=== PATIENT | female | born 1965 ===

== ENCOUNTER 2020-04-21 10:08 | Outpatient (REF) | payer OTHER, SELFPAY ==
--- NOTE | 2020-04-21 11:35 | XR_ITS ---
EXAMINATION: XR HIP, LEFT XR HAND AND WRIST, RIGHT XR WRIST, LEFT CLINICAL INFORMATION: Rheumatoid arthritis. COMPARISON: None TECHNIQUE: Left hip 2 views. Left hand and wrist 4 views. Right hand and wrist 3 views. FINDINGS: LEFT HIP: There is no visible fracture, dislocation or bony erosive changes. There is a sclerotic bone island in the left ischium. The soft tissues are normal. RIGHT HAND/WRIST: There is no visible acute fracture, dislocation or subluxation seen. No bony erosive changes. The scaphoid bone is intact on the scaphoid view. The soft tissues are normal. LEFT HAND/WRIST: There is no visible acute fracture, dislocation or subluxation seen. No bony erosive changes. The scaphoid bone appears intact on the scaphoid view. The soft tissues are normal. XR/XR hand wrist RT IMPRESSION: Unremarkable left hip exam. Unremarkable right hand and wrist exam. Unremarkable left hand and wrist exam.
--- NOTE | 2020-04-21 11:35 | XR_ITS ---
EXAMINATION: XR HIP, LEFT XR HAND AND WRIST, RIGHT XR WRIST, LEFT CLINICAL INFORMATION: Rheumatoid arthritis. COMPARISON: None TECHNIQUE: Left hip 2 views. Left hand and wrist 4 views. Right hand and wrist 3 views. FINDINGS: LEFT HIP: There is no visible fracture, dislocation or bony erosive changes. There is a sclerotic bone island in the left ischium. The soft tissues are normal. RIGHT HAND/WRIST: There is no visible acute fracture, dislocation or subluxation seen. No bony erosive changes. The scaphoid bone is intact on the scaphoid view. The soft tissues are normal. LEFT HAND/WRIST: There is no visible acute fracture, dislocation or subluxation seen. No bony erosive changes. The scaphoid bone appears intact on the scaphoid view. The soft tissues are normal. XR/XR wrist LT 2V IMPRESSION: Unremarkable left hip exam. Unremarkable right hand and wrist exam. Unremarkable left hand and wrist exam.
--- NOTE | 2020-04-21 11:35 | XR_ITS ---
EXAMINATION: XR HIP, LEFT XR HAND AND WRIST, RIGHT XR WRIST, LEFT CLINICAL INFORMATION: Rheumatoid arthritis. COMPARISON: None TECHNIQUE: Left hip 2 views. Left hand and wrist 4 views. Right hand and wrist 3 views. FINDINGS: LEFT HIP: There is no visible fracture, dislocation or bony erosive changes. There is a sclerotic bone island in the left ischium. The soft tissues are normal. RIGHT HAND/WRIST: There is no visible acute fracture, dislocation or subluxation seen. No bony erosive changes. The scaphoid bone is intact on the scaphoid view. The soft tissues are normal. LEFT HAND/WRIST: There is no visible acute fracture, dislocation or subluxation seen. No bony erosive changes. The scaphoid bone appears intact on the scaphoid view. The soft tissues are normal. XR/XR hip LT min 2V IMPRESSION: Unremarkable left hip exam. Unremarkable right hand and wrist exam. Unremarkable left hand and wrist exam.
[2020-04-21 12:19] LABS: MANUAL DIFF FLAG NO
[2020-04-21 12:27] LABS: Basophils Percent Auto 0.3 % (0-2); Eosinophils Absolute Auto 0.2 X10*3/uL (0.0-0.4); Eosinophils Percent Auto 2.2 % (0-4); Hematocrit 39.7 % (37-47); Hemoglobin 12.4 g/dl (12.0-16.0); Imm Gran Abs Auto 0.02 X10*3/uL (0.00-0.03); Imm Gran Pct Auto 0.3 % (0.0-0.4); Lymphocytes Absolute Auto 2.3 X10*3/uL (1.2-4.9); Lymphocytes Percent Auto 29.5 % (20-40); Mean Corpuscular HGB Conc 31.2 g/dl (31.0-35.0); Mean Corpuscular Hemoglobin 25.5 pg (27.0-33.0); Mean Corpuscular Volume 81.5 fL (80-98); Mean Platelet Volume 9.7 fL (9.4-12.3); Monocytes Absolute Auto 0.6 X10*3/uL (0.1-1.2); Monocytes Percent Auto 7.7 % (2-11); Neutrophils Absolute Auto 4.6 X10*3/uL (2.0-8.3); Platelet Count 290 X10*3/uL (160-400); Red Blood Count 4.87 X10*6/uL (4.20-5.50); Red Cell Distribution Width 14.5 % (11.0-16.0); White Blood Count 7.7 X10*3/uL (4.8-10.8)
[2020-04-21 12:59] LABS: Alanine Aminotransferase 17 U/L (0-31); Albumin Level 4.4 g/dL (3.5-5.0); Alkaline Phosphatase 91 U/L (39-117); Anion Gap 12 (12-20); Aspartate Amino Transferase 18 U/L (5-31); Bilirubin Total 0.4 mg/dL (0.0-1.0); Blood Urea Nitrogen 17 mg/dL (9-16); C Reactive Protein 0.46 mg/dL (< or = 0.50); Calcium 9.2 mg/dL (8.4-10.2); Carbon Dioxide 28 mmol/L (22-29); Chloride 106 mmol/L (96-108); Estimated Glomerular Filt Rate > 60; Glucose Random 92 mg/dL (60-115); Rheumatoid Factor < 15.0 IU/mL (<15.0); Sodium 142 mmol/L (135-145); Total Protein 6.9 g/dL (6.5-8.0)
[2020-04-21 13:17] LABS: Erythrocyte Sedimentation Rate 16 MM/HR (0-20)
[2020-04-22 04:42] LABS: HBS Num1 55.58 mIU/mL (0-7.99); HBc Num1 0.06 S/CO (0.00-0.79); Hepatitis B Core Antibody Nonreactive (Nonreactive); ~HepC Num1 0.04 S/CO (0.00-0.79); ~Hepatitis B Surface Antibody REACTIVE (Nonreactive); ~Hepatitis C Antibody Nonreactive (Nonreactive)
[2020-04-22 04:53] LABS: HBsAGNum1 0.26 S/CO (0.00-0.99); Hepatitis A Antibody IgM 0.22 Index (0-0.79); Hepatitis B Surface Antigen Negative (Negative); ~Hepatitis A Antibody IgM Nonreactive (Nonreactive)
[2020-04-22 13:42] LABS: Anti Nuclear Antibody Screen NEGATIVE (NEGATIVE)
[2020-04-22 14:58] LABS: Antibody to SS-A Antigen <1.0 NEG AI (<1.0 NEG); Antibody to SS-B Antigen <1.0 NEG AI (<1.0 NEG)
[2020-04-22 23:57] LABS: Cyclic Citrullinated Peptide <16 UNITS
[2020-04-23 20:42] LABS: TS Negative Control Passed; TS Panel A 0; TS Panel B 0; TS Positive Control Passed; TSpotTB Negative (SeeBelow)
== END 2020-04-21 10:09 | disposition home or self-care (01) ==
LOC: HO.LAB 10:08
PROVIDERS: PCP Internal Medicine; Referring Provider Internal Medicine; Visit Provider Student in an Organized Health Care Education/Training Program
DX: M06.9 Rheumatoid arthritis, unspecified (principal); Z79.899 Other long term (current) drug therapy
CPT/HCPCS: 36415; 73100; 73110; 73130; 73502; 80053; 85025; 85652; 86038; 86039; 86140; 86200; 86235; 86431; 86481; 86704; 86706; 86709; 86803; 87340; 99202

== ENCOUNTER → 2020-05-17 13:11 | Outpatient (BNVA) | payer OTHER, SELFPAY | PROVIDERS: PCP Internal Medicine; Visit Provider Student in an Organized Health Care Education/Training Program ==

== ENCOUNTER 2020-08-03 15:43 | Outpatient (REF) | payer OTHER, SELFPAY ==
--- NOTE | ~2020-08-03 | XR_ITS ---
EXAMINATION: XR HAND, RIGHT CLINICAL INFORMATION: Rheumatoid arthritis COMPARISON: Previous x-ray most recent April 2020 TECHNIQUE: PA, lateral, and oblique views of the right hand. FINDINGS: Bone alignment is normal. No fracture or dislocation is seen. The bones appear osteopenic. The joint spaces are normal. Soft tissues are normal. XR/XR hand RT min 3V IMPRESSION: Osteopenia otherwise unremarkable exam.
--- NOTE | ~2020-08-03 | XR_ITS ---
EXAMINATION: XR KNEE, RIGHT CLINICAL INFORMATION: Rheumatoid arthritis COMPARISON: None TECHNIQUE: Four views of the right knee. FINDINGS: Bones and soft tissues are normal. No fracture or joint effusion. Alignment is anatomic. Joint spaces are well maintained. No abnormal soft tissue calcification. XR/XR knee RT 3V IMPRESSION: Normal right knee.
[2020-08-03 16:28] LABS: MANUAL DIFF FLAG NO
[2020-08-03 16:37] LABS: Basophils Percent Auto 0.4 % (0-2); Eosinophils Absolute Auto 0.2 X10*3/uL (0.0-0.4); Hematocrit 39.4 % (37-47); Hemoglobin 12.2 g/dl (12.0-16.0); Imm Gran Abs Auto 0.02 X10*3/uL (0.00-0.03); Imm Gran Pct Auto 0.2 % (0.0-0.4); Lymphocytes Absolute Auto 2.7 X10*3/uL (1.2-4.9); Lymphocytes Percent Auto 29.2 % (20-40); Mean Corpuscular Hemoglobin 25.2 pg (27.0-33.0); Mean Corpuscular Volume 81.4 fL (80-98); Mean Platelet Volume 9.3 fL (9.4-12.3); Monocytes Absolute Auto 0.9 X10*3/uL (0.1-1.2); Monocytes Percent Auto 9.8 % (2-11); Neutrophils Absolute Auto 5.4 X10*3/uL (2.0-8.3); Neutrophils Percent Auto 58.4 % (45-73); Platelet Count 280 X10*3/uL (160-400); Red Blood Count 4.84 X10*6/uL (4.20-5.50); White Blood Count 9.2 X10*3/uL (4.8-10.8)
[2020-08-03 17:06] LABS: Alanine Aminotransferase 24 U/L (0-31); Albumin Level 4.4 g/dL (3.5-5.0); Alkaline Phosphatase 86 U/L (39-117); Anion Gap 11 (12-20); Aspartate Amino Transferase 22 U/L (5-31); Bilirubin Total 0.3 mg/dL (0.0-1.0); Blood Urea Nitrogen 15 mg/dL (9-16); C Reactive Protein 0.47 mg/dL (< or = 0.50); Calcium 9.4 mg/dL (8.4-10.2); Carbon Dioxide 29 mmol/L (22-29); Chloride 108 mmol/L (96-108); Estimated Glomerular Filt Rate > 60; Glucose Random 68 mg/dL (60-115); Sodium 144 mmol/L (135-145); Total Protein 6.8 g/dL (6.5-8.0)
[2020-08-03 18:03] LABS: Erythrocyte Sedimentation Rate 16 MM/HR (0-20)
== END 2020-08-03 15:44 | disposition home or self-care (01) ==
LOC: HO.XRAY 15:43
PROVIDERS: PCP Internal Medicine; Visit Provider Student in an Organized Health Care Education/Training Program
DX: M06.9 Rheumatoid arthritis, unspecified (principal); Z79.899 Other long term (current) drug therapy
CPT/HCPCS: 36415; 73130; 73562; 80053; 85025; 85652; 86140; 99212

== ENCOUNTER 2020-11-04 10:32 | Outpatient (REF) | payer OTHER, SELFPAY ==
[2020-11-04 11:49] LABS: MANUAL DIFF FLAG NO
[2020-11-04 11:57] LABS: Basophils Percent Auto 0.4 % (0-2); Eosinophils Absolute Auto 0.2 X10*3/uL (0.0-0.4); Eosinophils Percent Auto 2.2 % (0-4); Hematocrit 40.1 % (37-47); Hemoglobin 12.4 g/dl (12.0-16.0); Imm Gran Abs Auto 0.02 X10*3/uL (0.00-0.03); Imm Gran Pct Auto 0.3 % (0.0-0.4); Lymphocytes Absolute Auto 2.9 X10*3/uL (1.2-4.9); Lymphocytes Percent Auto 37.3 % (20-40); Mean Corpuscular HGB Conc 30.9 g/dl (31.0-35.0); Mean Corpuscular Volume 80.8 fL (80-98); Mean Platelet Volume 8.9 fL (9.4-12.3); Monocytes Absolute Auto 0.7 X10*3/uL (0.1-1.2); Monocytes Percent Auto 8.5 % (2-11); Neutrophils Percent Auto 51.3 % (45-73); Platelet Count 277 X10*3/uL (160-400); Red Blood Count 4.96 X10*6/uL (4.20-5.50); Red Cell Distribution Width 15.4 % (11.0-16.0); White Blood Count 7.8 X10*3/uL (4.8-10.8)
[2020-11-04 12:41] LABS: Alanine Aminotransferase 17 U/L (0-31); Albumin Level 4.5 g/dL (3.5-5.0); Alkaline Phosphatase 86 U/L (39-117); Anion Gap 12 (12-20); Aspartate Amino Transferase 19 U/L (5-31); Bilirubin Total 0.5 mg/dL (0.0-1.0); Blood Urea Nitrogen 10 mg/dL (9-16); C Reactive Protein 0.43 mg/dL (< or = 0.50); Calcium 9.7 mg/dL (8.4-10.2); Carbon Dioxide 27 mmol/L (22-29); Chloride 106 mmol/L (96-108); Estimated Glomerular Filt Rate > 60; Glucose Random 86 mg/dL (60-115); Potassium 4.3 mmol/L (3.3-5.1); Sodium 141 mmol/L (135-145); Total Protein 7.1 g/dL (6.5-8.0)
[2020-11-04 13:24] LABS: Erythrocyte Sedimentation Rate 13 MM/HR (0-20)
== END 2020-11-04 10:33 | disposition home or self-care (01) ==
LOC: HO.LAB 10:32
PROVIDERS: PCP Internal Medicine; Visit Provider Student in an Organized Health Care Education/Training Program
DX: M06.9 Rheumatoid arthritis, unspecified (principal)
CPT/HCPCS: 36415; 80053; 85025; 85652; 86140; 99212

== ENCOUNTER → 2021-02-08 14:05 | Outpatient (BNVA) | payer OTHER, SELFPAY | PROVIDERS: PCP Internal Medicine; Visit Provider Nurse Practitioner Family | DX: M06.9 Rheumatoid arthritis, unspecified (principal) | CPT/HCPCS: 99212 ==

== ENCOUNTER 2021-03-16 09:41 | Outpatient (REF) | payer OTHER, SELFPAY ==
[2021-03-16 09:57] LABS: MANUAL DIFF FLAG NO
[2021-03-16 10:20] LABS: Basophils Percent Auto 0.3 % (0-2); Eosinophils Absolute Auto 0.2 X10*3/uL (0.0-0.4); Eosinophils Percent Auto 2.6 % (0-4); Hematocrit 40.4 % (37.0-47.0); Hemoglobin 12.7 g/dl (12.0-16.0); Imm Gran Abs Auto 0.02 X10*3/uL (0.00-0.03); Imm Gran Pct Auto 0.3 % (0.0-0.4); Lymphocytes Absolute Auto 2.5 X10*3/uL (1.2-4.9); Lymphocytes Percent Auto 34.2 % (20-40); Mean Corpuscular HGB Conc 31.4 g/dl (31.0-35.0); Mean Corpuscular Hemoglobin 25.6 pg (27.0-33.0); Mean Corpuscular Volume 81.5 fL (80.0-98.0); Mean Platelet Volume 8.8 fL (9.4-12.3); Monocytes Absolute Auto 0.5 X10*3/uL (0.1-1.2); Monocytes Percent Auto 7.3 % (2-11); Neutrophils Percent Auto 55.3 % (45-73); Platelet Count 300 X10*3/uL (160-400); Red Blood Count 4.96 X10*6/uL (4.20-5.50); White Blood Count 7.2 X10*3/uL (4.8-10.8)
[2021-03-16 11:05] LABS: Alanine Aminotransferase 18 U/L (0-31); Albumin Level 4.5 g/dL (3.5-5.0); Alkaline Phosphatase 84 U/L (39-117); Anion Gap 14 (12-20); Aspartate Amino Transferase 20 U/L (5-31); Bilirubin Total 0.5 mg/dL (0.0-1.0); Blood Urea Nitrogen 11 mg/dL (9-16); C Reactive Protein 0.42 mg/dL (< or = 0.50); Calcium 9.8 mg/dL (8.4-10.2); Carbon Dioxide 28 mmol/L (22-29); Chloride 103 mmol/L (96-108); Estimated Glomerular Filt Rate > 60; Glucose Random 87 mg/dL (60-115); Potassium 3.9 mmol/L (3.3-5.1); Sodium 141 mmol/L (135-145); Total Protein 7.5 g/dL (6.5-8.0)
[2021-03-16 12:20] LABS: Erythrocyte Sedimentation Rate 28 MM/HR (0-20)
== END 2021-03-16 09:42 | disposition home or self-care (01) ==
LOC: HO.LAB 09:41
PROVIDERS: PCP Internal Medicine; Visit Provider Nurse Practitioner Family
DX: M06.9 Rheumatoid arthritis, unspecified (principal)
CPT/HCPCS: 36415; 80053; 85025; 85652; 86140

== ENCOUNTER 2021-03-16 10:22 | Outpatient (REF) | payer OTHER, SELFPAY ==
--- NOTE | ~2021-03-16 | MM_ITS ---
EXAMINATION: BONE DENSITOMETRY CLINICAL INDICATION: Rheumatoid arthritis, unspecified. COMPARISON: This is the patient's baseline examination. TECHNIQUE: Using a [employer] DXA System (software version: 13.1) manufactured by [employer], dual-energy x-ray absorptiometry was performed of the lumbar spine and left hip. The images are of good technical quality. Summary results are attached. FINDINGS: AP SPINE L2-L4 (excluding L1): The data of L1-L4 has been changed to exclude the L1 vertebral body, because degenerative sclerosis at this level may cause overestimation of lumbar spine density. BMD 1.024 g/cm2, Z-score -1.0, T-score -1.5, osteopenia. LEFT FEMUR, NECK: BMD 0.884 g/cm2, Z-score -0.3, T-score -1.1, osteopenia. LEFT FEMUR, TOTAL: BMD 0.920 g/cm2, Z-score -0.3, T-score -0.7, normal. IDENTIFIED RISK FACTORS: Rheumatoid arthritis, history of fracture (adult), menopause, right oophorectomy. HISTORY OF FRACTURE: Wrist. MEDICATIONS: Vitamin D. MM/XR DEXA axial skeleton IMPRESSION: 1. DIAGNOSIS: Osteopenia based on the lowest T-score value of -1.5 in the lumbar spine applying World Health Organization criteria. 2. 10-YEAR FRACTURE RISK PREDICTION, FRAX: Major osteoporotic fracture (clinical spine, forearm, hip or shoulder) 7.5%. Hip fracture 0.5%. 3. Treatment Recommendations: NOF guidelines recommend consideration for treatment in postmenopausal women and men age 50 and older presenting with the following: -A hip or vertebral (clinical or morphometric) fracture. -T-score less than or equal to -2.5 at the femoral neck or spine after appropriate evaluation to exclude secondary causes. -Low bone mass at the hip or spine and a 10-year fracture probability by FRAX of greater than or equal to 3% for hip fracture or greater than or equal to 20% for major osteoporotic fracture based on the [place] adapted WHO algorithm. 4. Other Recommendations: All treatment decisions require clinical judgment and consideration of individual patient factors, including patient preferences, comorbidities, previous drug use, risk factors not captured in the FRAX model (e.g. frailty, falls, vitamin D deficiency, increased bone turnover, interval significant decline in bone density) and possible under or overestimation of fracture risk by FRAX. Additional medical evaluation for secondary cause of low bone mineral density may be appropriate. FUTURE SCAN RECOMMENDATION: People with diagnosed cases of osteoporosis or at high risk for fracture should have regular bone mineral density tests. For patients eligible for Medicare, routine testing is allowed once every 2 years. The testing frequency can be increased to one year for patients who have rapidly progressing disease, those who are receiving or discontinuing medical therapy to restore bone mass, or have additional risk factors.
== END 2021-03-16 10:23 | disposition home or self-care (01) ==
LOC: HO.MAMMO 10:22
PROVIDERS: Visit Provider Nurse Practitioner Family
DX: M06.9 Rheumatoid arthritis, unspecified (principal); Z78.0 Asymptomatic menopausal state; Z90.721 Acquired absence of ovaries, unilateral
CPT/HCPCS: 77080

== ENCOUNTER → 2021-06-16 10:39 | Outpatient (BNVA) | payer OTHER, SELFPAY | PROVIDERS: PCP Internal Medicine; Visit Provider Nurse Practitioner Family | DX: M06.9 Rheumatoid arthritis, unspecified (principal); Z87.39 Personal history of other diseases of the musculoskeletal system and connective tissue | CPT/HCPCS: 99212 ==

== ENCOUNTER → 2021-09-20 10:23 | Outpatient (BNVA) | payer OTHER, SELFPAY | PROVIDERS: PCP Internal Medicine; Visit Provider Nurse Practitioner Family | DX: M06.09 Rheumatoid arthritis without rheumatoid factor, multiple sites (principal); M85.80 Other specified disorders of bone density and structure, unspecified site; Z79.899 Other long term (current) drug therapy | CPT/HCPCS: 99212 ==

== ENCOUNTER → 2021-12-20 09:33 | Outpatient (BNVA) | payer OTHER, SELFPAY | PROVIDERS: PCP Internal Medicine; Visit Provider Nurse Practitioner Family | DX: M06.9 Rheumatoid arthritis, unspecified (principal); Z87.39 Personal history of other diseases of the musculoskeletal system and connective tissue | CPT/HCPCS: 99212 ==

== ENCOUNTER 2022-03-22 12:02 | Outpatient (REF) | payer OTHER, SELFPAY ==
[2022-03-22 13:40] LABS: MANUAL DIFF FLAG NO
[2022-03-22 13:41] LABS: Basophils Percent Auto 0.5 % (0-2); Eosinophils Absolute Auto 0.1 X10*3/uL (0.0-0.4); Eosinophils Percent Auto 1.7 % (0-4); Hematocrit 40.4 % (37.0-47.0); Hemoglobin 12.4 g/dl (12.0-16.0); Imm Gran Abs Auto 0.01 X10*3/uL (0.00-0.03); Imm Gran Pct Auto 0.2 % (0.0-0.4); Lymphocytes Absolute Auto 2.4 X10*3/uL (1.2-4.9); Lymphocytes Percent Auto 37.5 % (20-40); Mean Corpuscular HGB Conc 30.7 g/dl (31.0-35.0); Mean Corpuscular Hemoglobin 25.1 pg (27.0-33.0); Mean Corpuscular Volume 81.8 fL (80.0-98.0); Mean Platelet Volume 9.4 fL (9.4-12.3); Monocytes Absolute Auto 0.6 X10*3/uL (0.1-1.2); Monocytes Percent Auto 8.5 % (2-11); Neutrophils Absolute Auto 3.4 x10*3/uL (2.0-8.3); Neutrophils Percent Auto 51.6 % (45-73); Platelet Count 281 X10*3/uL (160-400); Red Blood Count 4.94 X10*6/uL (4.20-5.50); Red Cell Distribution Width 14.6 % (11.0-16.0); White Blood Count 6.5 X10*3/uL (4.8-10.8)
[2022-03-22 14:06] LABS: Alanine Aminotransferase 22 U/L (0-31); Aspartate Amino Transferase 20 U/L (5-31); C Reactive Protein 0.21 mg/dL (< or = 0.50); Estimated Glomerular Filt Rate > 60
[2022-03-22 14:30] LABS: Erythrocyte Sedimentation Rate 16 MM/HR (0-20)
== END 2022-03-22 12:03 | disposition home or self-care (01) ==
LOC: HO.10HDL 12:02
PROVIDERS: Visit Provider Nurse Practitioner Family
DX: M06.9 Rheumatoid arthritis, unspecified (principal); Z87.39 Personal history of other diseases of the musculoskeletal system and connective tissue; Z79.899 Other long term (current) drug therapy
CPT/HCPCS: 36415; 82565; 84450; 84460; 85025; 85652; 86140; 99212

== ENCOUNTER → 2022-07-05 11:40 | Outpatient (BNVA) | payer OTHER, SELFPAY | PROVIDERS: PCP Hospitalist; Visit Provider Nurse Practitioner Family | DX: M06.9 Rheumatoid arthritis, unspecified (principal); Z87.39 Personal history of other diseases of the musculoskeletal system and connective tissue | CPT/HCPCS: 99212 ==

== ENCOUNTER 2022-07-05 12:29 | Outpatient (REF) | payer OTHER, SELFPAY ==
[2022-07-05 13:42] LABS: MANUAL DIFF FLAG NO
[2022-07-05 13:55] LABS: Basophils Percent Auto 0.3 % (0-2); Eosinophils Absolute Auto 0.1 X10*3/uL (0.0-0.4); Eosinophils Percent Auto 1.7 % (0-4); Hematocrit 38.9 % (37.0-47.0); Hemoglobin 12.2 g/dl (12.0-16.0); Imm Gran Abs Auto 0.02 X10*3/uL (0.00-0.03); Imm Gran Pct Auto 0.3 % (0.0-0.4); Lymphocytes Absolute Auto 2.2 X10*3/uL (1.2-4.9); Lymphocytes Percent Auto 31.2 % (20-40); Mean Corpuscular HGB Conc 31.4 g/dl (31.0-35.0); Mean Corpuscular Hemoglobin 25.6 pg (27.0-33.0); Mean Corpuscular Volume 81.7 fL (80.0-98.0); Mean Platelet Volume 9.6 fL (9.4-12.3); Monocytes Absolute Auto 0.6 X10*3/uL (0.1-1.2); Neutrophils Absolute Auto 4.1 x10*3/uL (2.0-8.3); Neutrophils Percent Auto 58.5 % (45-73); Platelet Count 272 X10*3/uL (160-400); Red Blood Count 4.76 X10*6/uL (4.20-5.50); Red Cell Distribution Width 14.5 % (11.0-16.0)
[2022-07-05 14:49] LABS: Erythrocyte Sedimentation Rate 13 MM/HR (0-20)
[2022-07-05 15:04] LABS: Alanine Aminotransferase 20 U/L (0-31); Albumin Level 4.4 g/dL (3.5-5.0); Alkaline Phosphatase 79 U/L (39-117); Anion Gap 14 (12-20); Aspartate Amino Transferase 20 U/L (5-31); Bilirubin Total 0.5 mg/dL (0.0-1.0); Blood Urea Nitrogen 13 mg/dL (9-16); C Reactive Protein 0.16 mg/dL (< or = 0.50); Calcium 9.4 mg/dL (8.4-10.2); Carbon Dioxide 25 mmol/L (22-29); Chloride 106 mmol/L (96-108); Estimated Glomerular Filt Rate > 60; Glucose Random 101 mg/dL (60-115); Potassium 3.8 mmol/L (3.3-5.1); Sodium 141 mmol/L (135-145); Total Protein 6.8 g/dL (6.5-8.0)
== END 2022-07-05 12:30 | disposition home or self-care (01) ==
LOC: HO.10HDL 12:29
PROVIDERS: Visit Provider Nurse Practitioner Family
DX: M06.9 Rheumatoid arthritis, unspecified (principal)
CPT/HCPCS: 36415; 80053; 85025; 85652; 86140

== ENCOUNTER 2022-12-04 10:19 | Outpatient (AMB) | payer OTHER, SELFPAY ==
--- NOTE | 2022-12-04 10:24 | MHC.OFFVIS ---
Intake Vital Signs 12/04/22 10:25 Height 5 ft Weight 161 lb 6.054 oz BMI 31.5 BP 104/66 Blood Pressure Location Rt brachial Position Sitting Pulse 73 Pulse Source Pulse Oximeter Temp 97.4 F Temp Source Skin Pulse Oximetry (%) 97 Intake Visit Reasons: rheumatoid arthritis Intake Note: Pt seen today for RA follow up. Speech Language Therapist Required: No Accompanied by: Self / Same As Patient Allergies No Known Allergies Allergy (Verified 12/04/22 10:27) Medication List - Last Reconciled 12/04/22 by Ginny Hancock MD albuterol sulfate 0.63 mg inhalation QID PRN albuterol sulfate 90 mcg/actuation (Ventolin HFA) 2 puffs inhalation Q4H PRN aripiprazole 20 mg PO BEDTIME PRN atorvastatin 20 mg PO DAILY bupropion HCl 150 mg PO QAM cholecalciferol (vitamin D3) 50 mcg PO DAILY clonazepam 1 mg PO BID PRN diphenhydramine HCl (Allergy (diphenhydramine)) 25 mg PO Q6H PRN fluticasone propionate 110 mcg/actuation (Flovent HFA) 1 puff inhalation BID hydrochlorothiazide 12.5 mg PO DAILY hydroxyzine HCl 25 mg PO DAILY ibuprofen 600 mg PO Q8H PRN leflunomide 20 mg PO DAILY lisinopril 20 mg PO DAILY montelukast (Singulair) 10 mg PO DAILY multivitamin 1 tab PO BID naltrexone 50 mg PO DAILY omeprazole 20 mg PO DAILY phentermine 15 mg PO DAILY sulfasalazine 500 mg PO DAILY sumatriptan succinate mg PO topiramate 25 mg PO DAILY triamcinolone acetonide 0.025% topical HPI HPI Comments History of Present Illness Details 57yoF presents for follow-up of seronegative rheumatoid arthritis. Last seen by Jannette Godinez 06/28 On leflunomide 20 mg daily and sulfasalazine 500 mg BID, she continues to take her medication as prescribed. Patient states that her RA symptoms are stable. Denies any new joint pain, stiffness. Feels that her fingers are puffy but not painful.. PFSH Medical History Anxiety Depression GERD (gastroesophageal reflux disease) Hypertension Obesity Rheumatoid arthritis Surgical History H/O: hysterectomy Social History Household Members: None Alcohol intake: never Patient Tobacco Use Status: Never used Tobacco Review of Systems [facility] [place] Denies arthralgias and Denies stiffness Physical Exam Vital Signs: Last Vital Signs Temp 97.4 F 12/04/22 10:25 Pulse 73 12/04/22 10:25 BP 104/66 12/04/22 10:25 Pulse Ox 97 12/04/22 10:25 BMI result Body Mass Index 31.5 Const General: cooperative, healthy appearing and comfortable Nutritional Appearance: obese Orientation/consciousness: patient oriented x3 Limitations: no limitations HEENT Head: Yes normocephalic and Yes atraumatic Mouth: moist mucous membranes Resp Effort & Inspection: normal respiratory effort and able to speak in complete sentences Auscultation: clear to auscultation bilaterally Cardio Rate: regular rate GI Inspection: No distended Palpation (GI): Soft to palpation and nontender Skin General skin exam: no rashes or lesions noted Neuro General: patient oriented x3 Extrem Other: No active synovitis Assessment & Plan Assessment & Plan (1) Rheumatoid arthritis: Code(s): M06.9 - Rheumatoid arthritis, unspecified Qualifiers: Rheumatoid arthritis location: multiple sites Rheumatoid factor presence: unspecified presence Qualified Code(s): M06.9 - Rheumatoid arthritis, unspecified Plan: Patient with a history of seronegative rheumatoid arthritis. On leflunomide 20 mg daily and sulfasalazine 500 mg po BID. No synovitis on exam, joint pain is well controlled at this time. Inflammatory markers are normal. Patient's RA has been stable on this current regimen for more than a year. Discussed with patient, reduce sulfasalazine to 500 mg daily Continue leflunomide 20 mg daily Per review of chart patient has a history of positive TB test in the past. T-spot in 05/29 was negative. She denies any history of exposure to TB and has never been treated for TB in the past.?If there is need in the future to advance to biologic treatment, would consider need for treatment of latent TB before proceeding with biologic. Labs before next visit in 4 months (2) High risk medication use: Code(s): Z79.899 - Other senior living (current) drug therapy Plan: Patient is on leflunomide and sulfasalazine. Monitor safety labs (3) Osteopenia: Code(s): M85.80 - Other specified disorders of bone density and structure, unspecified site Plan: Xray 07/27 of the right hand showed osetopenia, patient is postmenopausal. DEXA March 2021 with Osteopenia based on the lowest T-score value of -1.5. Major osteoporotic fracture (clinical spine, forearm, hip or shoulder) 7.5%. Hip fracture 0.5%.? Continue vitamin-D, consume calcium rich foods and weight-bearing exercise.? Next DEXA due March 2023. ordered Plan I spent 26 minutes reviewing patient's chart, evaluating patient, ordering diagnostic workup, counseling patient and documenting in the chart Orders: Orders C Reactive Protein 4 Months M06.9 - Rheumatoid arthritis, unspecified Complete Blood Count Auto Diff 4 Months M06.9 - Rheumatoid arthritis, unspecified Comprehensive Met. Panel 4 Months M06.9 - Rheumatoid arthritis, unspecified Erythrocyte Sedimentation Rate 4 Months M06.9 - Rheumatoid arthritis, unspecified XR DEXA axial skeleton 03/08/23 M85.80 - Other specified disorders of bone density and structure, unspecified site Coding Level of Care Code Est Pt Level 4 (43544) Diagnoses Rheumatoid arthritis M06.9 Rheumatoid arthritis location: multiple sites Rheumatoid factor presence: unspecified presence High risk medication use Z79.899 Osteopenia M85.80
[2022-12-04 10:25] VITALS: BP 104/66; PULSE 73; TEMP 36.3; O2SAT 97; BMI 31.5
== END 2022-12-04 10:45 | disposition home or self-care (01) ==
PROVIDERS: PCP Hospitalist; Visit Provider Student in an Organized Health Care Education/Training Program
DX: M06.9 Rheumatoid arthritis, unspecified (principal); Z79.899 Other long term (current) drug therapy; M85.80 Other specified disorders of bone density and structure, unspecified site
CPT/HCPCS: 99214

== ENCOUNTER → 2022-12-04 10:19 | Outpatient (BNVA) | payer OTHER, SELFPAY | PROVIDERS: PCP Hospitalist; Visit Provider Student in an Organized Health Care Education/Training Program | DX: M06.00 Rheumatoid arthritis without rheumatoid factor, unspecified site (principal); M85.80 Other specified disorders of bone density and structure, unspecified site; Z79.899 Other long term (current) drug therapy | CPT/HCPCS: 99212 ==

== ENCOUNTER 2023-03-19 10:14 | Outpatient (REF) | payer OTHER, SELFPAY ==
--- NOTE | ~2023-03-19 | MM_ITS ---
EXAMINATION: BONE DENSITOMETRY CLINICAL INDICATION: Other specified disorders of bone density and structure, unspecified site. COMPARISON: Baseline BD dated 03/16/2021. TECHNIQUE: Using a [employer] DXA System (software version: 13.1) manufactured by [employer], dual-energy x-ray absorptiometry was performed of the lumbar spine and left hip. The images are of good technical quality. Summary results are attached. FINDINGS: AP SPINE L1-L4: Current: BMD 1.032 g/cm2, Z-score -0.3, T-score -1.2, osteopenia, 1.1% decrease from baseline (<5% change is not significant). Baseline: BMD 1.044 g/cm2. LEFT FEMUR, NECK: Current: BMD 0.865 g/cm2, Z-score -0.2, T-score -1.2, osteopenia. Baseline: BMD 0.884 g/cm2. LEFT FEMUR, TOTAL: Current: BMD 0.888 g/cm2, Z-score -0.2, T-score -0.9, normal, 3.5% decrease from baseline (<5% change is not significant). Baseline: BMD 0.920 g/cm2. IDENTIFIED RISK FACTORS: History of adult fracture. Rheumatoid arthritis. Height loss. Menopause. Hysterectomy. HISTORY OF FRACTURE: Wrist. MEDICATIONS: None listed. MM/XR DEXA axial skeleton IMPRESSION: 1. DIAGNOSIS: Osteopenia based on the lowest T-score value of -1.2 in the lumbar spine and femoral neck applying World Health Organization criteria. 2. 10-YEAR FRACTURE RISK PREDICTION, FRAX: Major osteoporotic fracture (clinical spine, forearm, hip or shoulder) 8.5%. Hip fracture 0.6%. 3. Treatment Recommendations: NOF guidelines recommend consideration for treatment in postmenopausal women and men age 50 and older presenting with the following: -A hip or vertebral (clinical or morphometric) fracture. -T-score less than or equal to -2.5 at the femoral neck or spine after appropriate evaluation to exclude secondary causes. -Low bone mass at the hip or spine and a 10-year fracture probability by FRAX of greater than or equal to 3% for hip fracture or greater than or equal to 20% for major osteoporotic fracture based on the [place] adapted WHO algorithm. 4. Other Recommendations: All treatment decisions require clinical judgment and consideration of individual patient factors, including patient preferences, comorbidities, previous drug use, risk factors not captured in the FRAX model (e.g. frailty, falls, vitamin D deficiency, increased bone turnover, interval significant decline in bone density) and possible under or overestimation of fracture risk by FRAX. Additional medical evaluation for secondary cause of low bone mineral density may be appropriate. FUTURE SCAN RECOMMENDATION: People with diagnosed cases of osteoporosis or at high risk for fracture should have regular bone mineral density tests. For patients eligible for Medicare, routine testing is allowed once every 2 years. The testing frequency can be increased to one year for patients who have rapidly progressing disease, those who are receiving or discontinuing medical therapy to restore bone mass, or have additional risk factors.
== END 2023-03-19 10:15 | disposition home or self-care (01) ==
LOC: HO.MAMMO 10:14
PROVIDERS: PCP Hospitalist; Visit Provider Student in an Organized Health Care Education/Training Program
DX: Z13.820 Encounter for screening for osteoporosis (principal); M85.80 Other specified disorders of bone density and structure, unspecified site; Z78.0 Asymptomatic menopausal state
CPT/HCPCS: 77080

== ENCOUNTER 2023-05-07 12:58 | Outpatient (AMB) | payer OTHER, SELFPAY ==
[2023-05-07 13:52] VITALS: BP 110/72; PULSE 81; TEMP 36; O2SAT 99; BMI 30.4
--- NOTE | 2023-05-07 13:52 | MHC.OFFVIS ---
Intake Vital Signs 05/07/23 13:52 Height 5 ft Weight 155 lb 10.342 oz BMI 30.4 BP 110/72 Blood Pressure Location Rt brachial Position Sitting Pulse 81 Pulse Source Pulse Oximeter Temp 96.8 F Temp Source Skin Pulse Oximetry (%) 99 Oxygen Delivery Method Room Air Intake Visit Reasons: RA Intake Note: Pt last seen 12/04/22 presents today for follow up and test results.. Multimedia Instructional Designer Required: No Accompanied by: Self / Same As Patient Allergies No Known Allergies Allergy (Verified 05/07/23 13:55) Medication List - Last Reconciled 05/07/23 by Ginny Hancock MD albuterol sulfate 0.63 mg inhalation QID PRN albuterol sulfate 90 mcg/actuation (Ventolin HFA) 2 puffs inhalation Q4H PRN aripiprazole 20 mg PO BEDTIME PRN atorvastatin 20 mg PO DAILY bupropion HCl 150 mg PO QAM clonazepam 1 mg PO BID PRN diphenhydramine HCl (Allergy (diphenhydramine)) 25 mg PO Q6H PRN fluticasone propionate 110 mcg/actuation (Flovent HFA) 1 puff inhalation BID hydrochlorothiazide 12.5 mg PO DAILY hydroxyzine HCl 25 mg PO DAILY ibuprofen 600 mg PO Q8H PRN leflunomide 20 mg PO DAILY lisinopril 20 mg PO DAILY montelukast (Singulair) 10 mg PO DAILY multivitamin 1 tab PO BID naltrexone 50 mg PO DAILY omeprazole 20 mg PO DAILY phentermine 15 mg PO DAILY sulfasalazine 500 mg PO DAILY sumatriptan succinate mg PO topiramate 25 mg PO DAILY triamcinolone acetonide 0.025% topical HPI HPI Comments History of Present Illness Details 57yoF presents for follow-up of seronegative rheumatoid arthritis. She was last seen . On leflunomide 20 mg daily and sulfasalazine 500 mg qd, sulfasalazine was lowered from 500 mg Twice daily last visit to 500 mg q.d.. She has not noticed a difference patient is doing well overall. No new complaints. She states that she had COVID at the beginning of the year, she was prescribed Paxlovid by her PCP with rapid improvement. [facility] Medical History Depression Anxiety Hypertension GERD (gastroesophageal reflux disease) Obesity Rheumatoid arthritis Surgical History H/O: hysterectomy Social History Household Members: None Alcohol intake: never Patient Tobacco Use Status: Never used Tobacco Review of Systems [facility] [place] Denies arthralgias and Denies stiffness Physical Exam Vital Signs: Last Vital Signs Temp 96.8 F 05/07/23 13:52 Pulse 81 05/07/23 13:52 BP 110/72 05/07/23 13:52 Pulse Ox 99 05/07/23 13:52 Oxygen Delivery Method Room Air 05/07/23 13:52 BMI result Body Mass Index 30.4 Const General: cooperative, healthy appearing and comfortable Nutritional Appearance: obese Orientation/consciousness: patient oriented x3 Limitations: no limitations HEENT Head: Yes normocephalic and Yes atraumatic Mouth: moist mucous membranes Resp Effort & Inspection: normal respiratory effort and able to speak in complete sentences Auscultation: clear to auscultation bilaterally Cardio Rate: regular rate GI Inspection: No distended Palpation (GI): Soft to palpation and nontender Skin General skin exam: no rashes or lesions noted Neuro General: patient oriented x3 Extrem Other: No active synovitis Assessment & Plan Assessment & Plan (1) Rheumatoid arthritis: Code(s): M06.9 - Rheumatoid arthritis, unspecified Qualifiers: Rheumatoid arthritis location: multiple sites Rheumatoid factor presence: unspecified presence Qualified Code(s): M06.9 - Rheumatoid arthritis, unspecified Plan: 57-year-old female with seronegative RA returns for follow-up On leflunomide 20 mg daily and sulfasalazine 500 mg daily. Her RA is well controlled. Continue with sulfasalazine 500 mg daily and leflunomide 20 mg daily Per review of chart patient has a history of positive TB test in the past. T-spot in 05/29 was negative. She denies any history of exposure to TB and has never been treated for TB in the past.?If there is need in the future to advance to biologic treatment, would consider need for treatment of latent TB before proceeding with biologic. Labs before next visit in 4 months (2) High risk medication use: Code(s): Z79.899 - Other superintendent container terminal (current) drug therapy Plan: Patient is on leflunomide and sulfasalazine. Monitor safety labs (3) Osteopenia: Code(s): M85.80 - Other specified disorders of bone density and structure, unspecified site Qualifiers: Osteopenia location: multiple sites Qualified Code(s): M85.89 - Other specified disorders of bone density and structure, multiple sites Plan: DEXA March 2021 showed osteopenia with low FRAX score, repeat DEXA 03/2023 showed stable bone density. Advised patient to consume dairy products, discussed weight-bearing exercise. Will check vitamin-D level before next visit and consider supplementation Plan I spent 26 minutes reviewing patient's chart, evaluating patient, ordering diagnostic workup, counseling patient and documenting in the chart Orders: Orders Complete Blood Count Auto Diff 4 Months Z79.899 - Other superintendent container terminal (current) drug therapy C Reactive Protein 4 Months Z79.899 - Other longterm (current) drug therapy Erythrocyte Sedimentation Rate 4 Months Z79.899 - Other longterm (current) drug therapy Comprehensive Met. Panel 4 Months Z79.899 - Other longterm (current) drug therapy Vitamin D 25-OH (D2 and D3) 4 Months E55.9 - Vitamin D deficiency, unspecified Coding Level of Care Code Est Pt Level 4 (99155) Diagnoses Rheumatoid arthritis involving multiple sites, unspecified whether rheumatoid factor present M06.9 Rheumatoid arthritis location: multiple sites Rheumatoid factor presence: unspecified presence High risk medication use Z79.89 Osteopenia of multiple sites M85.89 Osteopenia location: multiple sites
== END 2023-05-07 14:40 | disposition home or self-care (01) ==
PROVIDERS: PCP Hospitalist; Visit Provider Student in an Organized Health Care Education/Training Program
DX: M06.9 Rheumatoid arthritis, unspecified (principal); Z79.899 Other long term (current) drug therapy; M85.89 Other specified disorders of bone density and structure, multiple sites
CPT/HCPCS: 99214

== ENCOUNTER → 2023-05-07 12:58 | Outpatient (BNVA) | payer OTHER, SELFPAY | PROVIDERS: PCP Hospitalist; Visit Provider Student in an Organized Health Care Education/Training Program | DX: M06.00 Rheumatoid arthritis without rheumatoid factor, unspecified site (principal); M85.89 Other specified disorders of bone density and structure, multiple sites; Z79.899 Other long term (current) drug therapy | CPT/HCPCS: 99212 ==

== ENCOUNTER 2023-09-04 11:02 | Outpatient (REF) | payer OTHER, SELFPAY ==
[2023-09-04 13:11] LABS: MANUAL DIFF FLAG NO
[2023-09-04 13:29] LABS: Basophils Percent Auto 0.3 % (0-2); Eosinophils Absolute Auto 0.2 X10*3/uL (0.0-0.4); Eosinophils Percent Auto 2.8 % (0-4); Hematocrit 40.2 % (37.0-47.0); Hemoglobin 12.5 g/dl (12.0-16.0); Imm Gran Abs Auto 0.01 X10*3/uL (0.00-0.03); Imm Gran Pct Auto 0.1 % (0.0-0.4); Lymphocytes Absolute Auto 2.4 X10*3/uL (1.2-4.9); Lymphocytes Percent Auto 34.9 % (20-40); Mean Corpuscular HGB Conc 31.1 g/dl (31.0-35.0); Mean Corpuscular Hemoglobin 25.8 pg (27.0-33.0); Mean Corpuscular Volume 82.9 fL (80.0-98.0); Mean Platelet Volume 9.2 fL (9.4-12.3); Monocytes Absolute Auto 0.5 X10*3/uL (0.1-1.2); Monocytes Percent Auto 7.5 % (2-11); Neutrophils Absolute Auto 3.7 x10*3/uL (2.0-8.3); Neutrophils Percent Auto 54.4 % (45-73); Platelet Count 272 X10*3/uL (160-400); Red Blood Count 4.85 X10*6/uL (4.20-5.50); White Blood Count 6.8 X10*3/uL (4.8-10.8)
[2023-09-04 13:45] LABS: Alanine Aminotransferase 16 U/L (0-31); Albumin Level 4.6 g/dL (3.5-5.0); Alkaline Phosphatase 81 U/L (39-117); Anion Gap 11 (12-20); Aspartate Amino Transferase 17 U/L (5-31); Bilirubin Total 0.4 mg/dL (0.0-1.0); Blood Urea Nitrogen 15 mg/dL (9-16); C Reactive Protein 0.18 mg/dL (< or = 0.50); Carbon Dioxide 29 mmol/L (22-29); Chloride 108 mmol/L (96-108); Estimated Glomerular Filt Rate > 60; Glucose Random 96 mg/dL (60-115); Potassium 3.7 mmol/L (3.3-5.1); Sodium 144 mmol/L (135-145); Total Protein 7.6 g/dL (6.5-8.0)
[2023-09-04 14:08] LABS: Erythrocyte Sedimentation Rate 14 MM/HR (0-20)
[2023-09-09 14:53] LABS: Vitamin D 25-OH, D2 <4 ng/mL; Vitamin D 25-OH, D3 35 ng/mL; Vitamin D 25-OH, Total 35 ng/mL (30-100)
== END 2023-09-04 11:03 | disposition home or self-care (01) ==
LOC: HO.10HDL 11:02
PROVIDERS: Visit Provider Student in an Organized Health Care Education/Training Program
DX: E55.9 Vitamin D deficiency, unspecified (principal); Z79.899 Other long term (current) drug therapy
CPT/HCPCS: 36415; 80053; 82306; 85025; 85652; 86140

== ENCOUNTER 2023-09-09 10:00 | Outpatient (AMB) | payer OTHER, SELFPAY ==
[2023-09-09 10:11] VITALS: BP 102/70; PULSE 90; O2SAT 94; BMI 30.7
--- NOTE | 2023-09-09 10:11 | A.OFFVIS_ITS ---
Vital Signs 09/09/23 10:11 Height 5 ft Weight 157 lb 6.561 oz BMI 30.7 BP 102/70 Blood Pressure Location Lt brachial Position Sitting Pulse 90 Pulse Oximetry (%) 94 Intake Visit Reasons: RA Intake Note: Patient last seen 05/07/23 presents today for follow up and test results. 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 Allergies No Known Allergies Allergy (Verified 09/09/23 10:11) Medication List - Last Reconciled 09/09/23 by Ginny Hancock MD albuterol sulfate 0.63 mg inhalation QID PRN albuterol sulfate 90 mcg/actuation (Ventolin HFA) 2 puffs inhalation Q4H PRN aripiprazole 20 mg PO BEDTIME PRN atorvastatin 20 mg PO DAILY bupropion HCl XL 150 mg PO QAM clonazepam 1 mg PO BID PRN diphenhydramine HCl (Allergy (diphenhydramine)) 25 mg PO Q6H PRN fluticasone propionate 110 mcg/actuation (Flovent HFA) 1 puff inhalation BID hydrochlorothiazide 12.5 mg PO DAILY hydroxyzine HCl 25 mg PO DAILY ibuprofen 600 mg PO Q8H PRN leflunomide 20 mg PO DAILY lisinopril 20 mg PO DAILY montelukast (Singulair) 10 mg PO DAILY multivitamin 1 tab PO BID naltrexone 50 mg PO DAILY omeprazole 20 mg PO DAILY phentermine 15 mg PO DAILY sulfasalazine 500 mg PO DAILY sumatriptan succinate mg PO topiramate 25 mg PO DAILY triamcinolone acetonide 0.025% topical HPI Comments Details: 57yoF presents for follow-up of seronegative rheumatoid arthritis. She was last seen 04/2023 On leflunomide 20 mg daily and sulfasalazine 500 mg qd, doing quite well overall. She states that she gets intermittent puffiness of her face, usually in the morning. She can not think of any specific reason. Advised patient to follow-up with her PCP [facility] Medical History Depression Anxiety Hypertension GERD (gastroesophageal reflux disease) Obesity Rheumatoid arthritis Surgical History H/O: hysterectomy Social History Household Members: None Alcohol intake: never Patient Tobacco Use Status: Never used Tobacco Review of Systems Musc Denies arthralgias and Denies stiffness Physical Exam Vital Signs: Last Vital Signs Pulse 90 09/09/23 10:11 BP 102/70 09/09/23 10:11 Pulse Ox 94 09/09/23 10:11 BMI result Body Mass Index 30.7 Const General: cooperative, healthy appearing and comfortable Nutritional Appearance: obese Orientation/consciousness: patient oriented x3 Limitations: no limitations HEENT Head: Yes normocephalic and Yes atraumatic Mouth: moist mucous membranes Resp Effort & Inspection: normal respiratory effort and able to speak in complete sentences Auscultation: clear to auscultation bilaterally Cardio Rate: regular rate GI Inspection: No distended Palpation (GI): Soft to palpation and nontender Skin General skin exam: no rashes or lesions noted Neuro General: patient oriented x3 Extrem Other: No active synovitis Assessment & Plan Assessment & Plan (1) Rheumatoid arthritis: Code(s): M06.9 - Rheumatoid arthritis, unspecified Category: Medical Qualifiers: Rheumatoid arthritis location: multiple sites Rheumatoid factor presence: unspecified presence Qualified Code(s): M06.9 - Rheumatoid arthritis, unspecified Plan: 57-year-old female with seronegative RA returns for follow-up On leflunomide 20 mg daily and sulfasalazine 500 mg daily. Her RA is well controlled. Continue with sulfasalazine 500 mg daily and leflunomide 20 mg daily Labs before next visit in 4 months (2) High risk medication use: Code(s): Z79.899 - Other group home (current) drug therapy Category: Medical Plan: Patient is on leflunomide and sulfasalazine. Monitor safety labs (3) Osteopenia: Code(s): M85.80 - Other specified disorders of bone density and structure, unspecified site Category: Medical Qualifiers: Osteopenia location: multiple sites Qualified Code(s): M85.89 - Other specified disorders of bone density and structure, multiple sites Plan: DEXA March 2021 showed osteopenia with low FRAX score, repeat DEXA 03/2023 showed stable bone density. Advised patient to consume dairy products, disc ussed weight-bearing exercise. Vitamin-D level was checked, results pending, if low, will consider supplementation Plan I spent 26 minutes reviewing patient's chart, evaluating patient, ordering diagnostic workup, counseling patient and documenting in the chart Coding Level of Care Code Est Pt Level 4 (66210) Diagnoses Rheumatoid arthritis involving multiple sites, unspecified whether rheumatoid factor present M06.9 Rheumatoid arthritis location: multiple sites Rheumatoid factor presence: unspecified presence High risk medication use Z79.899 Osteopenia of multiple sites M85.89 Osteopenia location: multiple sites
== END 2023-09-09 10:26 | disposition home or self-care (01) ==
LOC: HO.RHE 10:00
PROVIDERS: PCP Hospitalist; Visit Provider Student in an Organized Health Care Education/Training Program
DX: M06.9 Rheumatoid arthritis, unspecified (principal); Z79.899 Other long term (current) drug therapy; M85.89 Other specified disorders of bone density and structure, multiple sites
CPT/HCPCS: 99214

== ENCOUNTER → 2023-09-09 10:00 | Outpatient (BNVA) | payer OTHER, SELFPAY | PROVIDERS: PCP Hospitalist; Visit Provider Student in an Organized Health Care Education/Training Program | DX: M06.00 Rheumatoid arthritis without rheumatoid factor, unspecified site (principal); M85.89 Other specified disorders of bone density and structure, multiple sites; Z79.899 Other long term (current) drug therapy | CPT/HCPCS: 99212 ==

== ENCOUNTER 2024-01-09 10:39 | Outpatient (AMB) | payer OTHER, SELFPAY ==
--- NOTE | 2024-01-09 10:41 | MHC.OFFVIS ---
Vital Signs 01/09/24 10:44 Height 5 ft Weight 156 lb 11.979 oz BMI 30.6 BP 130/72 Blood Pressure Location Rt brachial Position Sitting Pulse 82 Pulse Source Pulse Oximeter Pulse Oximetry (%) 97 Oxygen Delivery Method Room Air Intake Visit Reasons: RA Intake Note: Patient present for RA. Allergies No Known Allergies Allergy (Verified 01/09/24 10:45) HPI Comments Details: 57yoF presents for follow-up of seronegative rheumatoid arthritis. She was last seen 09/2023 On leflunomide 20 mg daily and sulfasalazine 500 mg qd, doing quite well overall. She states that she feels her hands are puffy but they are not painful or stiff. She states that she gets intermittent puffiness of her face, usually in the morning. She can not think of any specific reason. [facility] Medical History Depression Anxiety Hypertension GERD (gastroesophageal reflux disease) Obesity Rheumatoid arthritis Surgical History H/O: hysterectomy Social History Household Members: None Alcohol intake: never Patient Tobacco Use Status: Never used Tobacco Review of Systems Musc Denies arthralgias and Denies stiffness Physical Exam Vital Signs: Last Vital Signs Pulse 82 01/09/24 10:44 BP 130/72 01/09/24 10:44 Pulse Ox 97 01/09/24 10:44 Oxygen Delivery Method Room Air 01/09/24 10:44 BMI result Body Mass Index 30.6 Const General: cooperative, healthy appearing and comfortable Nutritional Appearance: obese Orientation/consciousness: patient oriented x3 Limitations: no limitations HEENT Head: Yes normocephalic and Yes atraumatic Mouth: moist mucous membranes Resp Effort & Inspection: normal respiratory effort and able to speak in complete sentences Auscultation: clear to auscultation bilaterally Cardio Rate: regular rate GI Inspection: No distended Palpation (GI): Soft to palpation and nontender Skin General skin exam: no rashes or lesions noted Neuro General: patient oriented x3 Extrem Other: No active synovitis Assessment & Plan Assessment & Plan (1) Rheumatoid arthritis: Code(s): M06.9 - Rheumatoid arthritis, unspecified Category: Medical Qualifiers: Rheumatoid arthritis location: multiple sites Rheumatoid factor presence: unspecified presence Qualified Code(s): M06.9 - Rheumatoid arthritis, unspecified Plan: 58-year-old female with seronegative RA returns for follow-up On leflunomide 20 mg daily and sulfasalazine 500 mg daily. Her RA is well controlled. Discontinue sulfasalazine and continue with leflunomide 20 mg daily. Advised patient to call the office if she starts to have a flare-up Labs today and before next visit in 4 months (2) High risk medication use: Code(s): Z79.899 - Other termite exterminator helper (current) drug therapy Category: Medical Plan: Monitor safety labs (3) Osteopenia: Code(s): M85.80 - Other specified disorders of bone density and structure, unspecified site Category: Medical Qualifiers: Osteopenia location: multiple sites Qualified Code(s): M85.89 - Other specified disorders of bone density and structure, multiple sites Plan: DEXA March 2021 showed osteopenia with low FRAX score, repeat DEXA 03/2023 showed stable bone density. Advised patient to consume dairy products, discussed weight-bearing exercise. Plan I spent 26 minutes reviewing patient's chart, evaluating patient, ordering diagnostic workup, counseling patient and documenting in the chart Orders: Orders Complete Blood Count Auto Diff 4 Months M06.9 - Rheumatoid arthritis, unspecified Comprehensive Met. Panel 4 Months M06.9 - Rheumatoid arthritis, unspecified C Reactive Protein 4 Months M06.9 - Rheumatoid arthritis, unspecified Comprehensive Met. Panel Today M06.9 - Rheumatoid arthritis, unspecified, Z79.899 - Other halfway (current) drug therapy Erythrocyte Sedimentation Rate Today M06.9 - Rheumatoid arthritis, unspecified, Z79.899 - Other halfway (current) drug therapy Erythrocyte Sedimentation Rate 4 Months M06.9 - Rheumatoid arthritis, unspecified Complete Blood Count Auto Diff Today M06.9 - Rheumatoid arthritis, unspecified, Z79.899 - Other halfway (current) drug therapy C Reactive Protein Today M06.9 - Rheumatoid arthritis, unspecified, Z79.899 - Other termite exterminator helper (current) drug therapy Medications: Refilled leflunomide 20 mg PO DAILY 90 tabs 1RF M06.9 - Rheumatoid arthritis, unspecified Discontinued sulfasalazine Discontinued Reason: Doctor's Order 500 mg PO DAILY 90 tabs 0RF Coding Level of Care Code Est Pt Level 4 (56273) Diagnoses Rheumatoid arthritis involving multiple sites, unspecified whether rheumatoid factor present M06.9 Rheumatoid arthritis location: multiple sites Rheumatoid factor presence: unspecified presence High risk medication use Z79.899 Osteopenia of multiple sites M85.89 Osteopenia location: multiple sites
[2024-01-09 10:44] VITALS: BP 130/72; PULSE 82; O2SAT 97; BMI 30.6
== END 2024-01-09 11:00 | disposition home or self-care (01) ==
PROVIDERS: PCP Hospitalist; Visit Provider Student in an Organized Health Care Education/Training Program
DX: M06.9 Rheumatoid arthritis, unspecified (principal); Z79.899 Other long term (current) drug therapy; M85.89 Other specified disorders of bone density and structure, multiple sites
CPT/HCPCS: 99214

== ENCOUNTER → 2024-01-09 10:39 | Outpatient (BNVA) | payer OTHER, SELFPAY | PROVIDERS: PCP Hospitalist; Visit Provider Student in an Organized Health Care Education/Training Program | DX: M06.9 Rheumatoid arthritis, unspecified (principal); M85.89 Other specified disorders of bone density and structure, multiple sites; Z79.899 Other long term (current) drug therapy | CPT/HCPCS: 99212 ==